=== PATIENT | male | born 1990 | race Caucasian/White ===

== ENCOUNTER 2018-04-04 14:35 | Emergency (ER) | payer SELFPAY ==
[2018-04-04] MEDS ORDERED: Clindamycin 600 MG IVPREMIX(* 600 MG/50 ML SDV IV ONE (16:02)
--- NOTE | 2018-04-04 16:25 | RAD ---
HISTORY: infection COMPARISONS: May 21, 2016 VIEWS: 3 , Frontal, lateral, and oblique views of the first digit of the right hand FINDINGS: BONE DENSITY: Normal. BONES: There is no displaced fracture. There is no appreciable erosion or periosteal reaction. JOINTS: There is no arthropathy. ALIGNMENT: There is no dislocation. SOFT TISSUES: There is soft tissue swelling over the first interphalangeal joint. OTHER FINDINGS: None. IMPRESSION: SOFT TISSUE SWELLING. NO APPRECIABLE EROSION OR PERIOSTEAL REACTION. PLAIN FILM FINDINGS OF OSTEOMYELITIS ARE RELATIVELY LATE FINDINGS. IF THERE IS PERSISTENT CLINICAL CONCERN FOR OSTEOMYELITIS, RECOMMEND CORRELATION WITH FOLLOWUP IMAGING, THREE-PHASE BONE SCANNING, WHITE BLOOD CELL SCAN, AND/OR MRI OF THE AFFECTED REGION.
[2018-04-04] MEDS ORDERED: Lidocaine 1%* 5 ML VIAL INJ ONE (16:33)
--- NOTE | 2018-04-04 16:33 | ED ---
Upper Extremity Pain - HPI Summary HPI Summary: Pt. is a 27-year old male who presents emergency department for infection to right great digit of hand. Patient states he was washing dishes about 3-4 days ago and then developed a painful red area swelling to distal right thumb. Patient states he went to [facility] yesterday and was prescribed Bactrim. Patient presents today because swelling and pain has increased. Patient denies fever, chills, nausea, vomiting. He denies past medical history. He states he has had MRSA infections in the past. Patient notes red streaking up the right arm. Symptoms are moderate in severity. Moving and touching finger makes symptoms worse. Nothing makes symptoms better. Pt. states his tetanus immunization is up to date. - History of Current Complaint Chief Complaint: EDRashSkinAbscess Stated Complaint: RT THUMB INFECTION Time Seen by Provider: 04/04/18 15:47 Hx Obtained From: Patient - Allergies/Home Medications Allergies/Adverse Reactions: Allergies Allergy/AdvReac Type Severity Reaction Status Date / Time No Known Allergies Allergy Verified 05/21/16 21:50 PMH/Surg Hx/FS Hx/Imm Hx Previously Healthy: Yes Endocrine/Hematology History: Denies: Hx Diabetes, Hx Thyroid Disease Cardiovascular History: Denies: Hx Hypertension Respiratory History: Denies: Hx Asthma, Hx Chronic Obstructive Pulmonary Disease (COPD) GI History: Denies: Hx Ulcer History: Denies: Hx Renal Disease Psychiatric History: Denies: Hx Eating Disorder, Hx of Violent Episodes Against Others - per patient - Immunization History Date of Tetanus Vaccine: within 5 years Date of Influenza Vaccine: none Immunizations Up to Date: Yes Infectious Disease History: No Infectious Disease History: Reports: Hx of Known/Suspected MRSA Denies: Hx Hepatitis, Hx Human Immunodeficiency Virus (HIV), Traveled Outside the [place] in Last 30 Days - Family History Known Family History: Negative: Cardiac Disease, Hypertension, Diabetes - Social History Occupation: Unemployed Lives: Alone Alcohol Use: None Hx Substance Use: Yes Substance Use Type: Reports: None Substance Use Comment - Amount & Last Used: Pt denies - xanax and ativan found in vehicle Smoking Status (MU): Light Every Day Tobacco Smoker Review of Systems Constitutional: Negative Negative: Fever, Chills Gastrointestinal: Negative Negative: Vomiting, Nausea Positive: Other - Pain and redness to right thumb All Other Systems Reviewed And Are Negative: Yes Physical Exam Triage Information Reviewed: Yes Vital Signs On Initial Exam: Initial Vitals Temp Pulse Resp BP Pulse Ox 98.1 F 92 16 129/87 95 04/04/18 14:37 04/04/18 14:37 04/04/18 14:37 04/04/18 14:37 04/04/18 14:37 Vital Signs Reviewed: Yes Appearance: Positive: Well-Appearing - Patient sitting on bed in no acute distress. Skin: Positive: Warm, Dry Head/Face: Positive: Normal Head/Face Inspection Eyes: Positive: Normal, EOMI Neck: Positive: Supple Musculoskeletal: Positive: Other - Large area of erythema and fluctuance noted to the distal aspect of the right great digits of hand over the DIP joint on the extensor surface. Unable to fully flex digit secondary to pain. Lymphangitis noted up volar aspect of forearm. Neurological: Positive: Normal, CN Intact II-III Psychiatric: Positive: Affect/Mood Appropriate Procedures - Procedure Summary Procedure Summary: I and D: Consent and time out performed. Right thumb was cleansed with betadine. 2cc 1% lidocaine used for anesthesia. 0.5cm incision was made. Small amount of purulent material was expressed. Wound culture obtained. Pt. tolerated fair. Diagnostics - Vital Signs Vital Signs Temp Pulse Resp BP Pulse Ox 04/04/18 14:37 98.1 F 92 16 129/87 95 - Laboratory Result Diagrams: 04/04/18 16:20 04/04/18 16:20 Lab Statement: Any lab studies that have been ordered have been reviewed, and results considered in the medical decision making process. Course/Dx - Course Course Of Treatment: Pt. presenting to the ER for infection of right thumb. He appears to have a localized abscess with surrounding cellulitis. He does not have diffuse, circumferential erythema and edema to digit. He is afebrile and well appearing. Will obtain labs and give a dose of IV clindamycin. CBC shows normal WBC. CPR minimaly elevated at 11. Xray shows localized edema without evidence of osteo, per radiology. I and D was performed and a small amount of purulent material expressed. Pt. examined by Dr. Reyes as well. Dr. Reyes feels pt. can be dc tonight to f.u with hand tomorrow. I spoke with hand sx, Dr. Whitfield, who agrees to see pt. in office tomorrow. He states if infection is not improving, he will plan for admission. Results and plan were discussed with pt. He is concerned about being discharged. I attempted to discuss possibility of admission tonight but pt. became very angry and stated he just wanted to go home now. Attempted multiple times to discuss treatment plan and availablity for admission but pt. refused to discuss this any further. Pt. also notes that he does not feel my I and D was successful and felt more puss should have been expressed. Pt.'s nurse, Nuvia LENTZ, present for conversation. Pt. to call Dr. Whitfield office in the morning for an apt. for tomorrow. To continue warm soaks. Small rx for lortab rx. 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 To return to ER sooner for increased redness, swelling, pain, fever, vomiting. - Diagnoses Provider Diagnoses: Abscess of finger Discharge - Sign-Out/Discharge Documenting (check all that apply): Patient Departure - Discharge Plan Condition: Good Disposition: HOME Prescriptions: Hydrocodone/Acetaminophen [Hydrocodone-Acetamin 5-325 mg] 1 each PO Q6H #8 tablet MDD 4tablets Patient Education Materials: Abscess (ED) Forms: *Work Release Referrals: Lui Whitfield MD [Medical Doctor] - No Primary Care Phys,NOPCP [Primary Care Provider] - Additional Instructions: Call Dr. Whitfield' office tomorrow morning for an appointment for tomorrow, If infection is not improving Dr. Whitfield will plan to admit you to the hospital Continue bactrim as directed Warm soaks Tylenol or Motrin for pain as directed Return to ER sooner for increased pain, redness, swelling, or fever - Billing Disposition and Condition Condition: GOOD Disposition: Home
[2018-04-04 16:43] LABS: ABS Basophils 0 10^3/ul (0-0.2); ABS Eosinophils 0.1 10^3/ul (0-0.6); ABS Lymphocytes 1.6 10^3/ul (1.0-4.8); ABS Monocytes 0.5 10^3/ul (0-0.8); ABS Neutrophils 5.8 10^3/ul (1.5-7.7); ABS Nucleated RBC 0 10^3/ul; Eosinophil % 0.9 % (0-6); Hematocrit 39 % (42-52); Hemoglobin 13.7 g/dl (14.0-18.0); Lymphocyte % 19.4 % (25-47); Mean Corpuscular HGB Conc 35 g/dl (31-36); Mean Corpuscular Hemoglobin 31 pg (27-31); Mean Corpuscular Volume 90 fL (80-94); Mean Platelet Volume 8.1 um3 (7.4-10.4); Nucleated Red Blood Cells % 0; Platelet Count 199 10^3/ul (150-450); Red Blood Count 4.36 10^6/ul (4.00-5.40); Red Cell Distribution Width 13 % (10.5-15)
[2018-04-04 16:54] LABS: EGFR Non-African American 96.3 (>60)
[2018-04-04 19:11] VITALS: BP 144/61
== END 2018-04-04 19:02 | disposition home or self-care (01) ==
LOC: ED 14:35
DX: L02.511 Cutaneous abscess of right hand (principal); F17.200 Nicotine dependence, unspecified, uncomplicated; Z86.14 Personal history of Methicillin resistant Staphylococcus aureus infection
CPT/HCPCS: 10060; 36415; 80048; 85025; 86140; 96374; 99283